=== PATIENT | female | born 1975 | race Caucasian/White ===

== ENCOUNTER 2018-08-29 19:21 | Emergency (ER) | payer SELFPAY ==
[2018-08-29 19:22] VITALS: BP 99/60; PULSE 92; RESP 16; TEMP 36.7; O2SAT 100; BMI 23.3
[2018-08-29] MEDS: HYDROcodone Bitartrate/Apap 5/325 Tablet PO (19:54)
--- NOTE | 2018-08-29 20:00 | RAD_ITS ---
STUDY: X-RAY - LUMBAR SPINE REASON FOR EXAM: Female, 43 years old. Low back pain, no injury TECHNIQUE: 3 view(s) of the lumbar spine were obtained. COMPARISON: None FINDINGS: Normal lumbar lordosis. There is no substantial scoliosis. There is a normal alignment of the vertebrae. Normal vertebral bodies and endplates. Moderate disc space height loss at L5-S1. The soft tissue structures are unremarkable. RAD/Lumbar Spine 2 or 3 Views IMPRESSION: L5-S1 degenerative disc disease Electronically Signed: Fercho Swain DO at 20:52 EST Tel , Service support ,
--- NOTE | 2018-08-29 21:09 | ED.VISSUMM ---
- ER Visit Summary Date of Service: 08/29/18 Chief Complaint: Back pain History of Present Illness: The patient is a 43 F who woke today with lumbar back pain. It is worse in the midline in the upper lumbar region, but does have some pain in the right lower side with pain rating down her right leg. She has had similar episodes of back pain in the past. She has no known injury. She denies fever, chills. She denies IV drug use. She did take 4 tabs of Aleve at noon today. Physical Examination: Vital signs significant for blood pressure 99/60, otherwise unremarkable. Patient sitting in a bedside chair in no acute distress. Head neck examination normal. Heart is regular rate and rhythm. Lungs sounds are clear. Abdomen is soft nontender. Back examination reveals focal tenderness in the midline upper lumbar spine. No overlying skin changes. She has mild tenderness in the right lower lumbar paraspinals as well. Neuro exam reveals good strength and sensation. Test Results: L-spine x-rays are significant only for L5-S1 degenerative disc change. Emergency Department Course and Treatment: Patient was given a tab of Central and Flexeril here. Test results were discussed with her. She is given prescription for Naprosyn, Flexeril, Central, and prednisone. She will follow-up with her primary care physician. Treatment Plan: [] Disposition: Discharge Impression: Lumbar strain with radiculopathy This note was generated with [employer] dictation software. It may contain incorrect words, spelling, and punctuation that were not noted in review of the chart prior to signing ED Disposition - Plan for ED Patient: Chief Complaint: Back Referrals: Jer Hutchins [Primary Care Provider] -
--- NOTE | 2018-08-29 21:12 | DCINST.ED_ITS ---
ED Disposition - Plan for ED Patient: Disposition: Home or Assisted Living Chief Complaint: Back Instructions: ED Sprain Strain Lumbar Prescriptions: Hydrocodone Bitart/Apap 5-325 [[place] 5MG-325MG] 1 tablet PO Q6H PRN PRN 3 Days #10 tablet PRN Reason: Pain Naproxen [Naprosyn] 500 mg PO BID PRN PRN #20 tablet PRN Reason: Pain predniSONE tablet 40 mg PO DAILY #10 tablet Cyclobenzaprine [Flexeril] 10 mg PO TID PRN #20 tablet PRN Reason: Muscle Spasm Referrals: Jer Hutchins [Primary Care Provider] - 1 Week if not improving
[2018-08-29 21:18] VITALS: BP 117/70; PULSE 87; RESP 16; O2SAT 98
--- OUTSIDE RECORDS SUMMARY | 2018-11-01 05:29 | XMS RPT_ITS ---
:1975 Author Organization [facility] Care Team Providers Name Role Phone Jer Hutchins Primary Care Unavailable Nori Mccoy Attending Unavailable PROBLEMS PROBLEMS DATE TYPE CONDITION / CODE ATTENDING STATUS SOURCE 08/29/2018 Unknown M54.16 - Nori Mccoy Active [place] Radiculopathy, [facility] lumbar region / Hospital M54.16(ICD-10) Repository 08/29/2018 Unknown S39.012A - Nori Mccoy Active [place] Strain of [facility] muscle, fascia Hospital and tendon of [place] lower back, initial encounter / S39.012A(ICD-10) PROCEDURES PROCEDURES No Procedure Records FoundRESULTS RESULTS EMERGENCY DEPARTMENT Observed: 08/29/2018 Status: F Source: [place] SUMMARY 10:12 PM [facility] REPOSITORY [facility] Medical Records Department [address] [place] [id number] Emergency Department Summary 08/29/189 MR#: [id number] Acct: [id number] Name: MARA GARCÍA Rep #: [id number] : 1975 43 From: Nori Mccoy MD PCP: Jer Hutchins Status: DEP ER - ER Visit Summary Date of Service: 08/29/18 Chief Complaint: Back pain History of Present Illness: The patient is a 43 F who woke today with lumbar back pain. It is worse in the midline in the upper lumbar region, but does have some pain in the right lower side with pain rating down her right leg. She has had similar episodes of back pain in the past. She has no known injury. She denies fever, chills. She denies IV drug use. She did take 4 tabs of Aleve at noon today. Physical Examination: Vital signs significant for blood pressure 99/60, otherwise unremarkable. Patient sitting in a bedside chair in no acute distress. Head neck examination normal. Heart is regular rate and rhythm. Lungs sounds are clear. Abdomen is soft nontender. Back examination reveals focal tenderness in the midline upper lumbar spine. No overlying skin changes. She has mild tenderness in the right lower lumbar paraspinals as well. Neuro exam reveals good strength and sensation. Test Results: L-spine x-rays are significant only for L5-S1 degenerative disc change. Emergency Department Course and Treatment: Patient was given a tab of [place] and Flexeril here. Test results were discussed with her. She is given prescription for Naprosyn, Flexeril, [place], and prednisone. She will follow-up with her primary care physician. Treatment Plan: [] Disposition: Discharge Impression: Lumbar strain with radiculopathy This note was generated with [employer] dictation software. It may contain incorrect words, spelling, and punctuation that were not noted in review of the chart prior to signing ED Disposition - Plan for ED Patient: Chief Complaint: Back Referrals: Jer Hutchins [Primary Care Provider] - What to do if you have Problems For any increased pain, shortness of breath, bleeding, nausea or vomiting, chest pain, or any unexpected problems, contact your Primary Care Provider. Call [facility] ([phone]) or report to the closest Emergency Room. Call 911 if necessary. 08/29/18 4312 <Electronically signed by Nori Mccoy MD> Date Nori Mccoy MD Cosigner Signature (If Indicated): Date CC: Jer Hutchins DISCHARGE INSTRUCTION Observed: 08/29/2018 Status: F Source: [place] 9:12 PM [facility] RE[facility] Medical Records Department [address] [place] [address] Discharge Instruction 08/29/182110 MR#: [id number] Acct: [id number] Name: MARA GARCÍA Rep #: [id number] : 1975 43 From: Nori Mccoy MD PCP: Jer Hutchins Status: REG ER ED Disposition - Plan for ED Patient: Disposition: Home or Assisted Living Chief Complaint: Back Instructions: ED Sprain Strain Lumbar Prescriptions: Hydrocodone Bitart/Apap 5-325 [[place] 5MG-325MG] 1 tablet PO Q6H PRN PRN 3 Days #10 tablet PRN Reason: Pain Naproxen [Naprosyn] 500 mg PO BID PRN PRN #20 tablet PRN Reason: Pain predniSONE tablet 40 mg PO DAILY #10 tablet Cyclobenzaprine [Flexeril] 10 mg PO TID PRN #20 tablet PRN Reason: Muscle Spasm Referrals: Jer Hutchins [Primary Care Provider] - 1 Week if not improving What to do if you have Problems For any increased pain, shortness of breath, bleeding, nausea or vomiting, chest pain, or any unexpected problems, contact your Primary Care Provider. Call [facility] ([phone]) or report to the closest Emergency Room. Call 911 if necessary. 08/29/182111 <Electronically signed by Nori Mccoy MD> Date Nori Mccoy MD Cosigner Signature (If Indicated): Date CC: Jer Hutchins LUMBAR SPINE 2 OR 3 Observed: 08/29/2018 Status: F Source: [place] VIEWS 7:48 PM [facility] Services [address] [place] [address] Lumbar Spine 2 or 3 Views MR#: [id number] Acct: [id number] Name: MARA GARCÍA Rep #: [id number] : 1975 F 43 From: Fercho Swain DO PCP: Jer Hutchins Status: REG ER Study: Lumbar Spine 2 or 3 Views Date of Exam: 08/29/18 Exam# [id number] Ordering Dr: Nori Mccoy MD STUDY: X-RAY - LUMBAR SPINE REASON FOR EXAM: Female, 43 years old. Low back pain, no injury TECHNIQUE: 3 view(s) of the lumbar spine were obtained. COMPARISON: None FINDINGS: Normal lumbar lordosis. There is no substantial scoliosis. There is a normal alignment of the vertebrae. Normal vertebral bodies and endplates. Moderate disc space height loss at L5-S1. The soft tissue structures are unremarkable. RAD/Lumbar Spine 2 or 3 Views IMPRESSION: L5-S1 degenerative disc disease Electronically Signed: Fercho Swain DO at 20:52 EST Tel , Service support , CC: Nori Mccoy MD; Jer Hutchins Tractor Trailer Driver: Signed ALLERGIES ALLERGIES DATE TYPE / CODE NAME / CODE REACTION SEVERITY SOURCE 08/29/2018 Drug No Known Unknown [place] [facility] Allergy/4160 Allergies/F00 [facility] [address]656(SNOMED [id number](RXNOR Repository CT) M) ENCOUNTERS ENCOUNTERS ADMIT/DISCHARGE ACCOUNT ADMITTING ENCOUNTER LOCATION SOURCE NUMBER CLASS 08/29/2018/ [id number] Emergency [place] [facility] ing:ED Repository PAYERS PAYERS ENCOUNTER GUARANTOR PAYER SUBSCRIBER SOURCE 08/29/2018 MARA Ngo Primary NOT GIVENUNK [place] [id number] Insurance:SELF PAY [place], [place] Number: Effective Repository [id number]: [phone]) Date:2018-08-29 [phone] ()
== END 2018-08-29 21:19 | disposition home or self-care (01) ==
PROVIDERS: Emergency Provider Emergency Medicine; Family Provider Family Medicine; PCP Family Medicine
DX: S39.012A Strain of muscle, fascia and tendon of lower back, initial encounter (principal); X58.XXXA Exposure to other specified factors, initial encounter; Y93.9 Activity, unspecified; Y92.9 Unspecified place or not applicable; M54.16 Radiculopathy, lumbar region; Z72.0 Tobacco use
CPT/HCPCS: 72100; 99283

== ENCOUNTER 2018-12-07 23:34 | Emergency (ER) | payer SELFPAY ==
[2018-12-07 23:35] VITALS: BP 103/65; PULSE 96; RESP 18; TEMP 36.7; O2SAT 99; BMI 24.5
--- NOTE | 2018-12-07 23:42 | EKG12_ITS ---
Test Reason : CP/SOB Blood Pressure : / mmHG Vent. Rate : 091 BPM Atrial Rate : 091 BPM P-R Int : 136 ms QRS Dur : 090 ms QT Int : 356 ms P-R-T Axes : 012 -59 049 degrees QTc Int : 437 ms Normal sinus rhythm Left anterior fascicular block Abnormal ECG Confirmed by YARY ESCALERA ([id number]), editor & co founder MATA SALGADO ([id number]) on 12/12/2018 2:06:59 PM Referred By: KARLA Confirmed By:KENNEDY ESCALERA
--- NOTE | 2018-12-07 23:42 | RAD_ITS ---
STUDY: X-RAY CHEST REASON FOR EXAM: Female, 43 years old. Chest pain. TECHNIQUE: AP portable chest. COMPARISON: None. FINDINGS: The lungs are clear and expanded. There is no demonstrated pleural abnormality. Normal size heart. Normal mediastinum and freedom. Normal visualized pulmonary arteries. Normal visualized aortic arch and descending thoracic aorta. Normal visualized thoracic spine. Normal visualized ribs, clavicles, and shoulders. There is no demonstrated abnormality of the visualized soft tissue structures of the upper abdomen. RAD/Chest 1 View (Portable) IMPRESSION: Normal x-ray examination of the chest. Electronically Signed: Bi Luu MD at 0:09 EDT , Service support ,
[2018-12-07 23:53] LABS: Absolute Lymphocyte Count 1.85 X10^3/ul (0.83-4.51); Absolute Neutrophil Count 8.9 X10^3/uL (2.0-7.7); Basophil# 0.01 X10^3/uL; Basophil% 0.1 % (0-1); Eosinophil# 0.19 X10^3/uL; Eosinophils% 1.6 % (0-5); Hematocrit 38.6 % (37-47); Hemoglobin 12.9 g/dl (12.0-15.0); Lymphocyte # 1.85 X10^3/ul (4.0); Lymphocyte % 15.2 % (19-41); Mean Corp Hgb Conc 33.4 g/gl (32-36); Mean Corpuscular Hgb 29.9 pg (27.0-32.0); Mean Corpuscular Volume 89.6 fL (81-99); Monocyte# 1.19 X10^3/uL; Monocyte% 9.8 % (0-10); Neutrophil # 8.88 X10^3/uL (2.7-7.7); Neutrophil % 73.1 % (47-70); Platelet Count 207 K/mm3 (150-450); RBC Distribution Width CV 12.8 % (11.6-14.6); RBC Distribution Width SD 41.9 fl (35.1-43.9); Red Blood Count 4.31 M/mm3 (4.2-5.4); White Blood Count 12.2 K/mm3 (4.4-11.0)
[2018-12-07 23:57] LABS: POSITIVE COUNT NO; POSITIVE DIFFERENTIAL NO; POSITIVE MORPHOLOGY NO
[2018-12-08 00:02] LABS: International Normalized Ratio 1.1; Prothrombin Time (Protime)PT. 14.1 SECONDS (11.7-14.9)
[2018-12-08 00:07] LABS: Anion Gap 7 (5-15); BUN 12 mg/dL (7-18); BUN/Creat Ratio 20.7 RATIO (10-20); Calcium,Total 9.3 mg/dL (8.5-10.1); Chloride 101 mmol/L (98-107); Creatinine, Serum 0.58 mg/dL (0.55-1.02); EST Glomerular Filtration Rate 122 mL/min (>60); Est Glom Filt Rate - Afr Amer 147 mL/min (>60); Estimated Creatinine Clearance 105.59 ml/min; Glucose 85 mg/dL (74-106); Potassium 3.5 mmol/L (3.5-5.1); Sodium Level 138 mmol/L (136-145)
[2018-12-08] MEDS: Ketorolac 30 MG/ML Syringe IV (00:25)
[2018-12-08] MEDS: 0.9% Normal Saline 1,000 ML 150 ML IV (00:25)
[2018-12-08 00:34] VITALS: BP 102/66; PULSE 85; RESP 16
[2018-12-08 00:36] LABS: D-Dimer Quantitative (DVT/PE) 0.38 FEU/ug/m (0.27-0.49)
--- NOTE | 2018-12-08 00:57 | ED.VISSUMM ---
- ER Visit Summary Date of Service: 12/08/18 Chief Complaint: Chest pain History of Present Illness: The patient is a 43 F who complains of a runny nose for the past 1 week and cough with yellow sputum for the past 4 days. At 5 AM this morning she woke up with sharp pain in the right upper lateral chest near the axilla. She states pain is worse with deep breath. She has not noted fever or chills. Patient is a smoker but is never been diagnosed with asthma or COPD. Physical Examination: Vital signs unremarkable. Patient sitting upright in bed no acute distress. Head and neck examination unremarkable. Heart is regular rate and rhythm. Lung sounds are clear. Chest wall is nontender to palpation. Abdomen is soft nontender. Lower extremity examination was no calf tenderness or edema. Test Results: EKG is sinus at 91 with no sign of acute ischemia. CBC was a white count 12.2 was 73% neutrophils. Chemistry studies normal. INR normal. Troponin negative. D-dimer normal at 0.38. Chest x-ray is unremarkable. Emergency Department Course and Treatment: Patient was given Toradol and IV fluids. Test results discussed with the patient as well as her at bedside. She will be treated with a course of doxycycline, first dose given here. She will also be given a course of steroids for pleurisy. Treatment Plan: [] Disposition: Discharge Impression: Bronchitis with pleurisy This note was generated with [facility] dictation software. It may contain incorrect words, spelling, and punctuation that were not noted in review of the chart prior to signing ED Disposition - Plan for ED Patient: Disposition: Home or Assisted Living Instructions: ED Upper Resp Infec Abx Tx, ED Chest Pain Pleurisy Prescriptions: Prednisone 10 mg PO UD #33 tablet Doxycycline 100 mg PO BID #20 capsule Referrals: Jer Hutchins [Primary Care Provider] - 1 Week
[2018-12-08] MEDS: MethylPREDNISolone 125 MG/2 ML Vial IV (01:03)
[2018-12-08] MEDS: Doxycycline 100 MG CAPSULE PO (01:03)
[2018-12-08 01:07] VITALS: BP 97/67; PULSE 83; RESP 16; O2SAT 100
[2018-12-08 01:08] VITALS: BP 97/67; PULSE 83; RESP 16; O2SAT 100
== END 2018-12-08 01:11 | disposition home or self-care (01) ==
PROVIDERS: Emergency Provider Emergency Medicine; Family Provider Family Medicine; PCP Family Medicine
DX: J40 Bronchitis, not specified as acute or chronic (principal); R09.1 Pleurisy; F17.200 Nicotine dependence, unspecified, uncomplicated
CPT/HCPCS: 71045; 80048; 84484; 85025; 85379; 85610; 93005; 96361; 96374; 96375; 99285; J7030; A4216